=== PATIENT | female | born 1980 ===

== ENCOUNTER 2020-08-18 15:37 | Outpatient (CLI) | payer OTHER ==
--- NOTE | 2020-08-18 16:53 | Ultrasound Report ---
ULTRASOUND OBSTETRIC INDICATION / CLINICAL INFORMATION: bpp/elizabeth. Clinical Gestational Age (GA): TECHNIQUE: Transabdominal. COMPARISON: None available. FINDINGS: There is a single intrauterine . Heart Rate: 127 beats per minute. Position: cephalic. Amniotic Fluid Index (ELIZABETH) in cm (if calculated): 8.8 Maternal Adnexa: No significant abnormality. IMPRESSION: 1. Single, living intrauterine 2. ELIZABETH 8.8 Signer Name: Rich Mcmanus MD Signed: 08/18/2020 4:49 PM Workstation Name: [id number]
--- NOTE | 2020-08-18 16:54 | Ultrasound Report ---
CLINICAL DATA: bpp/dario TECHNICAL DATA: Document breath, motion, gestational age, tone, and fluid. FINDINGS: respiration, tone, and motion are well visualized and normal. Amniotic fluid volume is normal. Biophysical profile score is 8/8. The lower uterine segment is evaluated and there is no evidence of placenta previa. heart rate is Heart Rate. 127 IMPRESSION: The biophysical profile score is 8/8. Signer Name: Rich Mcmanus MD Signed: 08/18/2020 4:49 PM Workstation Name: [id number]
== END 2020-08-18 17:34 | disposition left against medical advice (07) ==
LOC: TRG 15:37 → APU 15:50 → TRG 17:34
PROVIDERS: ATTEND Obstetrics & Gynecology
DX: O09.93 Supervision of high risk pregnancy, unspecified, third trimester (principal); Z3A.36 36 weeks gestation of pregnancy
CPT/HCPCS: 76815; 76819